=== PATIENT | male | born 1990 | race African-American/Black ===

== ENCOUNTER 2016-08-30 16:25 | Emergency (ER) | payer SELFPAY ==
[~2016-08-30] VITALS: Ht 165.1 cm; Wt 62.1 kg
--- NOTE | 2016-08-30 16:49 | ED Abdominal Pain ---
General Chief Complaint: Abdominal/GI Problems Stated Complaint: STOMACH PAIN Nursing Triage Note: PT COMPLAINS OF FOUL SMELLING DIARRHEA X1 YEAR OR MORE. Sepsis Screen: No Definite Risk Source of Information: Patient Exam Limitations: No Limitations History of Present Illness Time Seen By Provider: 16:48 Initial Comments To ER with some diffuse abdominal cramping and foul-smelling diarrhea for one year (365 days) he does not have a physician here. He is going to school here to study abroad from [place], originally from [place]. Arrives here to the [facility] about 1-1.5 years ago. No fevers. Timing/Duration: 1-2 Days Severity/Quality: Cramping Allergies and Home Medications Allergies Coded Allergies: No Known Drug Allergies (Unverified , 08/30/16) Home Medications No Active Prescriptions or Reported Meds Review of Systems Constitutional: see HPI EENTM: No Symptoms Reported Respiratory: No Symptoms Reported Cardiovascular: No Symptoms Reported Gastrointestinal: See HPI, Abdominal Pain Genitourinary: No Symptoms Reported Musculoskeletal: no symptoms reported Skin: no symptoms reported Psychiatric/Neurological: No Symptoms Reported Past Szdvana-Ovuamx-Uvuhgt Hx Patient Social History Alcohol Use: Occasionally Uses Recreational Drug Use: No Smoking Status: Never a Smoker Recent Foreign Travel: No Contact w/Someone Who Travel: No Recent Infectious Disease Expo: No Recent Hopitalizations: No Physical Exam Vital Signs VS - Last 72 Hours, by Label 08/30/16 08/30/16 16:40 17:35 Temp 98.0 98.0 Pulse 77 77 Resp 16 16 B/P (MAP) 122/70 Pulse Ox 98 98 Capillary Refill : Less Than 3 Seconds General Appearance: WD/WN, no apparent distress HEENT: PERRL/EOMI, normal ENT inspection, TMs normal Neck: non-tender, full range of motion Respiratory: normal breath sounds, no respiratory distress, no accessory muscle use Cardiovascular: regular rate, rhythm, no murmur Gastrointestinal: normal bowel sounds, non tender, soft, No distended Extremities: normal range of motion, non-tender, normal inspection Neurologic/Psychiatric: alert, normal mood/affect, oriented x 3 Skin: normal color, warm/dry Progress/Results/Core Measures Results/Orders Lab Results Laboratory Tests Test 08/30/16 16:50 Range/Units White Blood Count 7.5 4.3-11.0 10^3/uL Red Blood Count 6.03 H 4.35-5.85 10^6/uL Hemoglobin 14.2 13.3-17.7 G/DL Hematocrit 44 40-54 % Mean Corpuscular Volume 72 L 80-99 FL Mean Corpuscular Hemoglobin 24 L 25-34 PG Mean Corpuscular Hemoglobin Concent 33 32-36 G/DL Red Cell Distribution Width 15.6 H 10.0-14.5 % Platelet Count 177 130-400 10^3/uL Mean Platelet Volume 11.9 H 7.4-10.4 FL Neutrophils (%) (Auto) 55 42-75 % Lymphocytes (%) (Auto) 36 12-44 % Monocytes (%) (Auto) 7 0-12 % Eosinophils (%) (Auto) 1 0-10 % Basophils (%) (Auto) 0 0-10 % Neutrophils # (Auto) 4.2 1.8-7.8 X 10^3 Lymphocytes # (Auto) 2.7 1.0-4.0 X 10^3 Monocytes # (Auto) 0.6 0.0-1.0 X 10^3 Eosinophils # (Auto) 0.1 0.0-0.3 10^3/uL Basophils # (Auto) 0.0 0.0-0.1 10^3/uL Sodium Level 141 135-145 MMOL/L Potassium Level 4.2 3.6-5.0 MMOL/L Chloride Level 107 98-107 MMOL/L Carbon Dioxide Level 28 21-32 MMOL/L Anion Gap 6 5-14 MMOL/L Blood Urea Nitrogen 14 7-18 MG/DL Creatinine 1.24 0.60-1.30 MG/DL Estimat Glomerular Filtration Rate > 60 BUN/Creatinine Ratio 11 Glucose Level 88 70-105 MG/DL Calcium Level 9.8 8.5-10.1 MG/DL Total Bilirubin 1.2 H 0.1-1.0 MG/DL Aspartate Amino Transf (AST/SGOT) 16 5-34 U/L Alanine Aminotransferase (ALT/SGPT) 11 0-55 U/L Alkaline Phosphatase 55 40-136 U/L Total Protein 7.8 6.4-8.2 G/DL Albumin 4.5 3.2-4.5 G/DL My Orders Orders - IRWIN PONCE ANESTHESIOLOGIST ASSISTANT CERTIFIED Cbc With Automated Diff (08/30/16 16:43) Comprehensive Metabolic Panel (08/30/16 16:43) Acute Abd Series (08/30/16 16:47) Vital Signs/I&O Vital Sign - Last 12Hours 08/30/16 08/30/16 16:40 17:35 Temp 98.0 98.0 Pulse 77 77 Resp 16 16 B/P (MAP) 122/70 Pulse Ox 98 98 Blood Pressure Mean: 87 Diagnostic Imaging Diagonstic Imaging: Xray Comments NAME: PATRICIA IBARRA MED REC#: [id number] PT STATUS: REG ER : 1990 PHYSICIAN: IRWIN PONCE APRN ADMIT DATE: 08/30/16/ER Draft Date of Exam:08/30/16 ACUTE ABD SERIES INDICATION: Diarrhea and abdominal pain. Supine and upright views of the abdomen are obtained with single view of the chest. FINDINGS: There is air trapping seen in the lungs with normal-appearing bowel gas pattern. High-density material projects over the region of the stomach and may be related to ingested medication. No pathologic abdominal calcification is seen. IMPRESSION: Air trapping in the lungs may be due to emphysema. No definite bowel obstruction or other acute abnormality seen in the abdomen. There is high density in the stomach which may be related to antacid congestion. Dictated on workstation # [id number] Dict: 08/30/16 1716 Trans: 08/30/16 1724 [id number] Interpreted by: MADDIE OGDEN MD Electronically signed by: Departure Impression Impression: Primary Impression: Diarrhea Disposition: 01 HOME, SELF-CARE Condition: Stable Departure-Patient Inst. Decision time for Depature: 17:15 Referrals: NO,LOCAL PHYSICIAN (PCP) Primary Care Physician JULIEN MENDEZ MD Patient Instructions: Diarrhea in Adolescents and Adults Add. Discharge Instructions: 1. Follow up with [facility] for stool cultures and additional workup 2. Return to ER for any fevers or worsening symptoms. 3. All discharge instructions reviewed with patient and/or family. Voiced understanding. Scripts No Active Prescriptions or Reported Meds Copy Copies To 1: JULIEN MENDEZ MD, PETER J APRN August 30, 2016 16:49
[2016-08-30 16:57] LABS: BASOPHILS % (AUTO) 0 % (0-10); EOSINOPHILS # (AUTO) 0.1 10^3/uL (0.0-0.3); EOSINOPHILS % (AUTO) 1 % (0-10); LYMPHOCYTES # (AUTO) 2.7 X 10^3 (1.0-4.0); LYMPHOCYTES % (AUTO) 36 % (12-44); MEAN CORPUSCULAR HEMOGLOBIN 24 PG (25-34); MEAN CORPUSCULAR HGB CONC 33 G/DL (32-36); MEAN CORPUSCULAR VOLUME 72 FL (80-99); MEAN PLATELET VOLUME 11.9 FL (7.4-10.4); MONOCYTES # (AUTO) 0.6 X 10^3 (0.0-1.0); MONOCYTES % (AUTO) 7 % (0-12); NEUTROPHILS # (AUTO) 4.2 X 10^3 (1.8-7.8); NEUTROPHILS % (AUTO) 55 % (42-75); PLATELET COUNT 177 10^3/uL (130-400); RED BLOOD COUNT 6.03 10^6/uL (4.35-5.85); RED CELL DISTRIBUTION WIDTH 15.6 % (10.0-14.5); WHITE BLOOD COUNT 7.5 10^3/uL (4.3-11.0)
[2016-08-30 17:14] LABS: ALANINE AMINOTRANSFERASE 11 U/L (0-55); ALBUMIN 4.5 G/DL (3.2-4.5); ANION GAP 6 MMOL/L (5-14); ASPARTATE AMINO TRANSFERASE 16 U/L (5-34); BILIRUBIN,TOTAL 1.2 MG/DL (0.1-1.0); BLOOD UREA NITROGEN 14 MG/DL (7-18); BUN/CREATININE RATIO 11; CALCIUM 9.8 MG/DL (8.5-10.1); CARBON DIOXIDE 28 MMOL/L (21-32); CHLORIDE 107 MMOL/L (98-107); CREATININE SERUM 1.24 MG/DL (0.60-1.30); GFR ESTIMATED > 60; GLUCOSE 88 MG/DL (70-105); POTASSIUM 4.2 MMOL/L (3.6-5.0); SODIUM 141 MMOL/L (135-145); TOTAL PROTEIN 7.8 G/DL (6.4-8.2)
--- NOTE | 2016-08-30 17:25 | Diagnostic Imaging Report ---
INDICATION: Diarrhea and abdominal pain. Supine and upright views of the abdomen are obtained with single view of the chest. FINDINGS: There is air trapping seen in the lungs with normal-appearing bowel gas pattern. High-density material projects over the region of the stomach and may be related to ingested medication. No pathologic abdominal calcification is seen. IMPRESSION: Air trapping in the lungs may be due to emphysema. No definite bowel obstruction or other acute abnormality seen in the abdomen. There is high density in the stomach which may be related to antacid congestion. Dictated by: Dictated on workstation # [id number]
[2016-08-30 17:35] VITALS: BP 122/70
== END 2016-08-30 17:35 | disposition home or self-care (01) ==
LOC: ER 16:28
DX: R19.7 Diarrhea, unspecified (principal)
CPT/HCPCS: 36415; 74022; 80053; 85025; 99283